=== PATIENT | male | born 1995 | race Caucasian/White ===

== ENCOUNTER 2018-04-14 21:21 | Emergency (ER) | payer MEDICAID, OTHER ==
[2018-04-14] MEDS: KETOROLAC 30 MG INJ IV (22:27)
[2018-04-14] MEDS: CLINDAMYCIN 600 MG/D5W (PMX) 50 ML IVPB (22:27)
== END 2018-04-15 00:09 | disposition home or self-care (01) ==
LOC: FTE 04-15 00:09
DX: K04.7 Periapical abscess without sinus (principal)
CPT/HCPCS: 96374; 96375; 99284-25